=== PATIENT | male | born 1995 | race Two or more races ===

== ENCOUNTER 2019-03-30 12:14 | Emergency (ER) | payer OTHER ==
[~2019-03-30] VITALS: Ht 170.2 cm; Wt 97.5 kg
[2019-03-30] MEDS ORDERED: AMOX1TAB61 PO (12:28)
--- NOTE | 2019-03-30 12:28 | PHYS DOC ---
Past Medical History Past Medical History: No Pertinent History (MAGDALENA POWER APRN) Past Surgical History: No Surgical History (MAGDALENA POWER APRN) Alcohol Use: None Drug Use: None (MAGDALENA POWER APRN) Adult General Chief Complaint Chief Complaint: HEAD INJURY/TRAUMA HPI HPI Patient is a 23 year old male who presents with an abrasion to his left presybeterian from a fall a few days ago. The patient states that he has had a persistent headache and the abrasion is gummy in appearance. He has been putting Neosporin and keeping the wound covered with a Band-Aid. He denies loss of consciousness. He is not up-to-date on his tetanus status. (MAGDALENA POWER APRN) Review of Systems Review of Systems Constitutional: Denies fever or chills [] Respiratory: Denies cough or shortness of breath [] Cardiovascular: No additional information not addressed in HPI [] GI: Denies abdominal pain, nausea, vomiting, bloody stools or diarrhea [] : Denies dysuria or hematuria [] Musculoskeletal: Denies back pain or joint pain [] Integument: See history of present illness Neurologic: See history of present illness Endocrine: Denies polyuria or polydipsia [] All other systems were reviewed and found to be within normal limits, except as documented in this note. (MAGDALENA POWER APRN) Current Medications Current Medications Current Medications Medications (Trade) Dose Ordered Sig/Shmuel Start Time Stop Time Status Last Admin Dose Admin Diphtheria/ Tetanus/Acell Pertussis (Boostrix) 0.5 ml ONCE ONCE 03/30/19 13:15 03/30/19 13:16 DC 03/30/19 15:38 0.5 ML (ANDREZ HERRING MD) Allergies Allergies Allergies Coded Allergies Type Severity Reaction Last Updated Verified No Known Drug Allergies 02/12/14 No (ANDREZ HERRING MD) Physical Exam Physical Exam Constitutional: Well developed, well nourished, no acute distress, non-toxic appearance. [] HENT: Normocephalic, bilateral external ears normal, oropharynx moist, no oral exudates, nose normal. [] Eyes: PERRLA, EOMI, conjunctiva normal, no discharge. [] Neck: Normal range of motion, no tenderness, supple, no stridor. [] Cardiovascular:Heart rate regular rhythm, no murmur [] Lungs & Thorax: Bilateral breath sounds clear to auscultation [] Abdomen: Bowel sounds normal, soft, no tenderness, no masses, no pulsatile masses. [] Skin: 4 cm x 3 cm abrasion to the left presybeterian with yellow exudate noted Back: No tenderness, no CVA tenderness. [] Extremities: No tenderness, no cyanosis, no clubbing, ROM intact, no edema. [] Neurologic: Alert and oriented X 3, normal motor function, normal sensory functi on, no focal deficits noted, cranial nerves II through XII are grossly intact. [] Psychologic: Affect normal, judgement normal, mood normal. [] (MAGDALENA POWER APRN) Current Patient Data Vital Signs Vital Signs Date Time Temp Pulse Resp B/P (MAP) Pulse Ox O2 Delivery O2 Flow Rate FiO2 03/30/19 12:30 98.4 82 20 152/66 (94) 98 Room Air 98.4 (ANDREZ HERRING MD) EKG EKG [] (MAGDALENA POWER APRN) Radiology/Procedures Radiology/Procedures []CT scan was negative for an acute bleed. (MAGDALENA POWER APRN) Course & Med Decision Making Course & Med Decision Making Pertinent Labs and Imaging studies reviewed. (See chart for details) []The patient is to take the antibiotic as directed. He is to follow-up with his primary care provider for an MRI if he continues to have a persistent headache. (MAGDALENA POWER APRN) Course & Med Decision Making Staff Physician Addendum: I was working in the ER during the course of this patient's visit. I was available for consultation as needed, but I was not directly involved in the care of this patient. (ANDREZ HERRING MD) Dragon Disclaimer Dragon Disclaimer This electronic medical record was generated, in whole or in part, using a voice recognition dictation system. (MAGDALENA POWER APRN) Departure Departure Impression: Primary Impression: Abrasion Additional Impressions: Headache Need for tetanus booster Disposition: 01 HOME, SELF-CARE Condition: STABLE Referrals: NO PCP (PCP) Patient Instructions: Abrasion, [id number], Headache, FAQs Additional Instructions: Take the medication as directed. Keep the abrasion clean and dry. Follow-up with your primary care provider if still having a headache in 4 days for an MRI or return to the emergency department if worsening. Scripts Cephalexin (KEFLEX) 250 Mg Capsule 1 CAP PO TID for infection, #21 CAP Prov: MAGDALENA POWER APRN 03/30/19 Problem Qualifiers MAGDALENA POWER APRN March 30, 2019 12:28 ANDREZ HERRING MD March 31, 2019 18:41
[2019-03-30 12:30] VITALS: BP 152/66
[2019-03-30] MEDS ORDERED: DIPHTH,PERTUSS(ACELL),TET TOX 0.5 ML DISP.SYRIN. VAX IM ONE (13:15)
[2019-03-30] MEDS ORDERED: CEPH-263 PO (15:38)
--- NOTE | 2019-03-31 09:45 | RAD ---
CT HEAD INDICATION: Head injury, headache COMPARISON: None Available. Exposure: One or more of the following individualized dose reduction techniques were utilized for this examination: 1. Automated exposure control 2. Adjustment of the mA and/or kV according to patient size 3. Use of iterative reconstruction technique TECHNIQUE: 5 mm contiguous axial images were obtained from the skull base to the vertex in both bone and soft tissue algorithm. FINDINGS: No abnormal attenuation within the brain parenchyma. No evidence of acute intracranial hemorrhage. No extra-axial fluid collections. No mass effect or midline shift. Ventricular size is appropriate. Basal cisterns are patent. No fractures identified.Kamara-white differentiation is preserved.Globes and orbits are within normal limits. Moderate opacification of the left sphenoid sinus. IMPRESSION: 1. No acute intracranial findings. 2. Left sphenoid sinus disease. Electronically signed by: Brad Paris MD (03/30/2019 1:43 PM) [place] [id number]
== END 2019-03-30 15:34 | disposition home or self-care (01) ==
LOC: ER 12:14
DX: S00.81XA Abrasion of other part of head, initial encounter (principal); R51 Headache; W18.39XA Other fall on same level, initial encounter; Y93.89 Activity, other specified; Y92.89 Other specified places as the place of occurrence of the external cause; Y99.8 Other external cause status
CPT/HCPCS: 70450; 90471; 90715; 99284-25